=== PATIENT | male | born 1960 | race Asian ===

== ENCOUNTER → 2017-10-09 | Outpatient (CLI) | payer OTHER | END | disposition home or self-care (01) | LOC: RADPV 14:51 | PROVIDERS: ATTEND Family Medicine | DX: M65.331 Trigger finger, right middle finger (principal); S62.603A Fracture of unspecified phalanx of left middle finger, initial encounter for closed fracture; X58.XXXA Exposure to other specified factors, initial encounter; Y93.89 Activity, other specified; Y92.89 Other specified places as the place of occurrence of the external cause; Y99.8 Other external cause status ==